=== PATIENT | female | born 1965 | race Caucasian/White ===

== ENCOUNTER 2016-10-11 14:20 | Emergency (ER) | payer OTHER ==
[~2016-10-11] VITALS: Ht 165.1 cm; Wt 85.9 kg
[~2016-10-11 14:20] MED LIST: AUGMENTIN875 MG PO; CIPRO500 MG PO; CLEOCIN300 MG PO; CLINDAMYCIN HC150 MG PO; FLEXERIL10 MG PO; FLEXERIL5 MG PO; FLOMAX0.4 MG PO; Flexeril PO; HYDROCHLOROTHIA25 MG PO; Humibid LA,Mucinex PO; K-DUR20 MEQ PO; KEFLEX500 MG PO; LEVO-T75 MCG PO; LEVOTHYROXINE150 MCG PO; LEVOTHYROXINE75 MCG PO; LOPRESSOR25 MG PO; LORTAB 5-325 M1 EACH PO; Levaquin PO; Levothroid,Synthroid PO; Lopressor PO; MEDROL DOSEPAK4 MG PO; METOPROLOL PO; METOPROLOL SUCC25 MG PO; METOPROLOL SUCC50 MG PO; METOPROLOL TART25 MG PO; MOTRIN600 MG PO; MOTRIN800 MG PO; NAPROSYN500 MG PO; NO MEDS; NOHOMEMEDS; NORCO 5/3251 TABLET PO; Norvasc PO; OXAYDO5 MG PO; OXYCODONE HCL5 MG PO; PATADAY2.5 ML BOTH EYES; PERCOCET 5/31 TABLET PO; PHENERGAN25 MG PR; PREDNISONE10 MG PO; PREDNISONE20 MG PO; PROMETHAZINE HC25 M1 PO; SKELAXIN800 MG PO; TRAMADOL HCL50 MG PO; TYLENOL WITH C1 EACH PO; ULTRACET1 TABLET PO; VALIUM5 MG PO; VICODIN 5-3001 EACH PO; Vicodin ES 7.5/750 PO; ZOFRAN8 MG PO; oxyCODONE PO
[2016-10-11] MEDS ORDERED: VENTOLIN HFA18 GM IH (16:21)
[2016-10-11] MEDS ORDERED: ZITHROMAX250 MG PO (16:21)
[2016-10-11] MEDS ORDERED: FLONASE16 G1 BOTH NARES (16:21)
[2016-10-11] MEDS ORDERED: PREDNISONE20 MG PO (16:21)
[2016-10-11] MEDS ORDERED: LEVO-T75 MCG PO (16:21)
[2016-10-11] MEDS ORDERED: METOPROLOL TART25 MG PO (16:21)
[2016-10-11 16:56] VITALS: BP 171/84
== END 2016-10-11 16:59 | disposition home or self-care (01) ==
LOC: EME 14:20
DX: J32.9 Chronic sinusitis, unspecified (principal); J20.9 Acute bronchitis, unspecified; Z76.0 Encounter for issue of repeat prescription; I10 Essential (primary) hypertension; Z87.442 Personal history of urinary calculi; F17.200 Nicotine dependence, unspecified, uncomplicated
CPT/HCPCS: 94640; 99281; 99283; J7512

== ENCOUNTER 2016-10-31 18:33 | Emergency (ER) | payer OTHER ==
[~2016-10-31] VITALS: Ht 167.6 cm; Wt 81.8 kg
[~2016-10-31 18:33] MED LIST changes: +FLONASE16 G1 BOTH NARES; +VENTOLIN HFA18 GM IH; +ZITHROMAX250 MG PO
[2016-10-31 19:36] LABS: ADD MIUA? NO; BILIRUBIN NEGATIVE; BLOOD NEGATIVE; COLOR YELLOW ((YELLOW)); GLUCOSE (STRIP) NEGATIVE; KETONES NEGATIVE; LEUKOCYTES NEGATIVE; NITRITE NEGATIVE; PROTEIN (STRIP) NEGATIVE; UCUL ADDED? NO; UROBILINOGEN 0.2 MG/DL (0.2-1.0)
[2016-10-31 19:59] LABS: MCH 31.2 PG (29.0-34.0); MCHC 31.7 G/DL (30.0-36.0); MCV 98.3 FL (83-99); MEAN PLAT.VOLUME 10.1 uM^3 (9.5-12.4); PLATELET COUNT 210 K/uL (156-360); RBC DIS.WIDTH-CV 14.3 % (11.8-14.6); RBC DIS.WIDTH-SD 51.9 % (39-53); RED BLOOD COUNT 3.56 M/uL (3.80-5.20)
[2016-10-31 20:09] LABS: CHLORIDE 109 mEq/L (99-109); POTASSIUM 3.5 mEq/L (3.7-5.4); SODIUM 142 mEq/L (136-147)
[2016-10-31 20:11] LABS: GLUCOSE 101 mg/dL (70-99)
[2016-10-31 20:12] LABS: ANION GAP 10 MEQ/L (2-14)
[2016-10-31 20:13] LABS: TOTAL BILIRUBIN 0.4 mg/dL (0.0-1.0)
[2016-10-31 20:14] LABS: ALKALINE PHOSPHATASE 49 IU/L (3-129)
[2016-10-31 20:15] LABS: GFR ESTIMATE (CALCULATED) 56 mL/min/
[2016-10-31 20:16] LABS: UREA NITROGEN (BUN) 19 mg/dL (9-23)
[2016-10-31 20:18] LABS: LIPASE 28 U/L (1.0-51.0)
[2016-10-31] MEDS ORDERED: ZOFRAN ODT4 MG PO (21:47)
[2016-10-31] MEDS ORDERED: PERCOCET 5/31 TABLET PO (21:47)
[2016-11-01 00:20] VITALS: BP 175/106
== END 2016-11-01 00:28 | disposition home or self-care (01) ==
LOC: EME 18:33
PROVIDERS: Physician Assistant
DX: R10.9 Unspecified abdominal pain (principal); I10 Essential (primary) hypertension; R11.10 Vomiting, unspecified; Z87.442 Personal history of urinary calculi; F17.200 Nicotine dependence, unspecified, uncomplicated
CPT/HCPCS: 74176; 80053; 81003; 83690; 85027; 99281; 99285; J0360; J2270; J2405; J7030

== ENCOUNTER 2016-11-05 08:07 | Emergency (ER) | payer OTHER ==
[~2016-11-05] VITALS: Ht 165.1 cm; Wt 87.0 kg
[~2016-11-05 08:07] MED LIST changes: +ZOFRAN ODT4 MG PO
[2016-11-05 09:14] LABS: BASOPHIL COUNT 0.1 K/uL (0-0.1); EOSINOPHIL (%) 5.1 % (0-5); EOSINOPHIL COUNT 0.3 K/uL (0-0.3); HEMATOCRIT 38.9 % (36.0-46.0); IMMATURE GRANULOCYTE (%) 0.6 % (0.0-0.7); INSTRUMENT ABS NEUTROPHIL CT 3.2 K/uL; LYMPHOCYTE COUNT 1.5 K/uL (1.0-2.8); MCH 31.1 PG (29.0-34.0); MCHC 31.6 G/DL (30.0-36.0); MCV 98.2 FL (83-99); MEAN PLAT.VOLUME 10.3 uM^3 (9.5-12.4); MONOCYTE (%) 6.4 % (3-12); MONOCYTE COUNT 0.3 K/uL (0-0.8); NEUTROPHIL (%) 59.1 % (45-76); NEUTROPHIL COUNT 3.2 K/uL (1.8-6.4); PLATELET COUNT 237 K/uL (156-360); RBC DIS.WIDTH-CV 13.8 % (11.8-14.6); RBC DIS.WIDTH-SD 50.4 % (39-53); RED BLOOD COUNT 3.96 M/uL (3.80-5.20); WHITE BLOOD COUNT 5.3 K/uL (4.1-10.2)
[2016-11-05 09:24] LABS: CHLORIDE 106 mEq/L (99-109); POTASSIUM 3.9 mEq/L (3.7-5.4); SODIUM 142 mEq/L (136-147)
[2016-11-05 09:26] LABS: GLUCOSE 97 mg/dL (70-99)
[2016-11-05 09:27] LABS: ANION GAP 12 MEQ/L (2-14)
[2016-11-05 09:30] LABS: GFR ESTIMATE (CALCULATED) > 59 mL/min/
[2016-11-05 09:31] LABS: UREA NITROGEN (BUN) 17 mg/dL (9-23)
[2016-11-05 09:40] LABS: ADD MIUA? NO; BILIRUBIN NEGATIVE; BLOOD NEGATIVE; COLOR STRAW ((YELLOW)); GLUCOSE (STRIP) NEGATIVE; KETONES NEGATIVE; LEUKOCYTES NEGATIVE; NITRITE NEGATIVE; PROTEIN (STRIP) NEGATIVE; SPECIFIC GRAVITY 1.009 (1.000-1.030); UCUL ADDED? NO; UROBILINOGEN 0.2 MG/DL (0.2-1.0)
[2016-11-05] MEDS ORDERED: ULTRAM50 MG PO (12:01)
[2016-11-05] MEDS ORDERED: MOTRIN400 MG PO (12:05)
[2016-11-05 12:28] VITALS: BP 166/84
== END 2016-11-05 12:40 | disposition home or self-care (01) ==
LOC: EME 08:07
PROVIDERS: Emergency Medicine
DX: M16.12 Unilateral primary osteoarthritis, left hip (principal); M25.552 Pain in left hip; I10 Essential (primary) hypertension; E03.9 Hypothyroidism, unspecified; Z90.710 Acquired absence of both cervix and uterus; Z87.442 Personal history of urinary calculi; F17.200 Nicotine dependence, unspecified, uncomplicated
CPT/HCPCS: 80048; 81003; 85025; 99281; 99285; J1885; J2405; J7030

== ENCOUNTER 2016-11-14 14:06 | Emergency (ER) | payer OTHER ==
[~2016-11-14] VITALS: Ht 165.1 cm; Wt 87.1 kg
[~2016-11-14 14:06] MED LIST changes: +MOTRIN400 MG PO; +ULTRAM50 MG PO
[2016-11-14] MEDS ORDERED: PERCOCET 5/31 TABLET PO (15:52)
[2016-11-14 16:09] VITALS: BP 168/112
== END 2016-11-14 16:23 | disposition home or self-care (01) ==
LOC: EME 14:06
DX: M16.12 Unilateral primary osteoarthritis, left hip (principal); I10 Essential (primary) hypertension; E03.9 Hypothyroidism, unspecified
CPT/HCPCS: 99281; 99284

== ENCOUNTER 2016-12-10 13:41 | Emergency (ER) | payer OTHER ==
[~2016-12-10] VITALS: Ht 165.1 cm; Wt 84.0 kg
[2016-12-10 14:59] LABS: HEMATOCRIT 38.7 % (36.0-46.0); MCH 30.6 PG (29.0-34.0); MCHC 31.5 G/DL (30.0-36.0); MEAN PLAT.VOLUME 9.4 uM^3 (9.5-12.4); PLATELET COUNT 182 K/uL (156-360); RBC DIS.WIDTH-CV 12.8 % (11.8-14.6); RBC DIS.WIDTH-SD 45.8 % (39-53); RED BLOOD COUNT 3.99 M/uL (3.80-5.20)
[2016-12-10 15:12] LABS: CHLORIDE 107 mEq/L (99-109); SODIUM 141 mEq/L (136-147)
[2016-12-10 15:14] LABS: GLUCOSE 83 mg/dL (70-99)
[2016-12-10 15:15] LABS: ANION GAP 6 MEQ/L (2-14); ERTH.SED.RATE 8 MM/HR (0-20)
[2016-12-10 15:18] LABS: GFR ESTIMATE (CALCULATED) > 59 mL/min/; UREA NITROGEN (BUN) 21 mg/dL (9-23)
[2016-12-10 15:20] LABS: CREATINE KINASE 169 IU/L (1-294)
[2016-12-10] MEDS ORDERED: VALIUM5 MG PO (15:59)
[2016-12-10] MEDS ORDERED: FIORICET 50-301 EACH PO (15:59)
[2016-12-10] MEDS ORDERED: MOTRIN800 MG PO (15:59)
[2016-12-10 16:25] VITALS: BP 160/99
== END 2016-12-10 16:26 | disposition home or self-care (01) ==
LOC: EME 13:41
PROVIDERS: Physician Assistant
DX: G44.209 Tension-type headache, unspecified, not intractable (principal); M50.321 Other cervical disc degeneration at C4-C5 level; M54.12 Radiculopathy, cervical region; M62.838 Other muscle spasm; M79.602 Pain in left arm; Z87.891 Personal history of nicotine dependence
CPT/HCPCS: 70450; 72040; 80048; 82550; 85027; 85651; 99281; 99284; J3010

== ENCOUNTER 2016-12-21 11:25 | Emergency (ER) | payer OTHER ==
[~2016-12-21] VITALS: Ht 165.1 cm; Wt 83.7 kg
[~2016-12-21 11:25] MED LIST changes: +FIORICET 50-301 EACH PO
[2016-12-21 13:59] LABS: COLOR RED ((YELLOW)); LEUKOCYTES MODERATE; NITRITE NEGATIVE; SPECIFIC GRAVITY 1.015 (1.000-1.030)
[2016-12-21 14:00] LABS: ADD MIUA? YES; BILIRUBIN NEGATIVE; BLOOD LARGE; GLUCOSE (STRIP) NEGATIVE; KETONES NEGATIVE; PH, URINE 6.5 (5-8); PROTEIN (STRIP) >300; UROBILINOGEN 0.2 MG/DL (0.2-1.0)
[2016-12-21 14:07] LABS: BACTERIA 1+ /HPF; BUDDING YEAST 1+; EPITHELIAL CELLS 2+ /HPF; MUCUS 2+ /LPF; RED BLOOD CELLS TNTC /HPF (0-5); UCUL ADDED? YES; WHITE BLOOD CELLS TNTC /HPF (0-5); WHITE BLOOD CELLS CLUMP MOD /HPF (0-5)
[2016-12-21 14:35] LABS: HEMATOCRIT 40.2 % (36.0-46.0); MCH 30.9 PG (29.0-34.0); MCHC 32.1 G/DL (30.0-36.0); MCV 96.2 FL (83-99); MEAN PLAT.VOLUME 9.7 uM^3 (9.5-12.4); PLATELET COUNT 197 K/uL (156-360); RBC DIS.WIDTH-CV 12.6 % (11.8-14.6); RED BLOOD COUNT 4.18 M/uL (3.80-5.20); WHITE BLOOD COUNT 8.1 K/uL (4.1-10.2)
[2016-12-21 14:39] LABS: CHLORIDE 105 mEq/L (99-109); POTASSIUM 3.4 mEq/L (3.7-5.4); SODIUM 141 mEq/L (136-147)
[2016-12-21 14:41] LABS: GLUCOSE 95 mg/dL (70-99)
[2016-12-21 14:43] LABS: ANION GAP 11 MEQ/L (2-14); TOTAL BILIRUBIN 0.4 mg/dL (0.0-1.0)
[2016-12-21 14:45] LABS: ALKALINE PHOSPHATASE 116 IU/L (3-129); GFR ESTIMATE (CALCULATED) > 59 mL/min/
[2016-12-21 14:46] LABS: UREA NITROGEN (BUN) 15 mg/dL (9-23)
[2016-12-21 14:55] LABS: QUANTITATIVE HCG < 4.0 MIU/ML
[2016-12-21] MEDS ORDERED: FLOMAX0.4 MG PO (15:38)
[2016-12-21] MEDS ORDERED: CIPRO500 MG PO (15:38)
[2016-12-21] MEDS ORDERED: NORCO 5/3251 TABLET PO (15:39)
[2016-12-21 15:59] VITALS: BP 160/77
== END 2016-12-21 16:00 | disposition home or self-care (01) ==
LOC: RME 11:25 → EME 11:25 → RME 16:00
PROVIDERS: Physician Assistant
DX: N12 Tubulo-interstitial nephritis, not specified as acute or chronic (principal); N20.1 Calculus of ureter; S32.9XXA Fracture of unspecified parts of lumbosacral spine and pelvis, initial encounter for closed fracture; I10 Essential (primary) hypertension; Z87.442 Personal history of urinary calculi; Z87.891 Personal history of nicotine dependence
CPT/HCPCS: 74176; 80053; 81003; 83605; 84702; 85027; 87040; 87077; 87086; 87186; 87801; 99281; 99285; J0696

== ENCOUNTER 2016-12-23 15:23 | Inpatient (IN) | payer OTHER ==
[~2016-12-23] VITALS: Ht 165.1 cm; Wt 80.3 kg
[2016-12-23 16:11] LABS: BASOPHIL COUNT 0.1 K/uL (0-0.1); EOSINOPHIL COUNT 0.1 K/uL (0-0.3); HEMATOCRIT 38.9 % (36.0-46.0); IMMATURE GRANULOCYTE (%) 0.7 % (0.0-0.7); IMMATURE GRANULOCYTE COUNT 0.1 K/uL; INSTRUMENT ABS NEUTROPHIL CT 4.6 K/uL; LYMPHOCYTE COUNT 1.6 K/uL (1.0-2.8); MCH 30.6 PG (29.0-34.0); MCHC 32.1 G/DL (30.0-36.0); MCV 95.3 FL (83-99); MEAN PLAT.VOLUME 9.6 uM^3 (9.5-12.4); MONOCYTE (%) 8.1 % (3-12); MONOCYTE COUNT 0.6 K/uL (0-0.8); NEUTROPHIL (%) 65.7 % (45-76); NEUTROPHIL COUNT 4.6 K/uL (1.8-6.4); PLATELET COUNT 242 K/uL (156-360); RBC DIS.WIDTH-CV 12.3 % (11.8-14.6); RBC DIS.WIDTH-SD 43.4 % (39-53); RED BLOOD COUNT 4.08 M/uL (3.80-5.20)
[2016-12-23 16:21] LABS: CHLORIDE 106 mEq/L (99-109); POTASSIUM 3.6 mEq/L (3.7-5.4); SODIUM 140 mEq/L (136-147)
[2016-12-23 16:22] LABS: GLUCOSE 116 mg/dL (70-99)
[2016-12-23 16:24] LABS: ANION GAP 9 MEQ/L (2-14)
[2016-12-23 16:26] LABS: GFR ESTIMATE (CALCULATED) > 59 mL/min/
[2016-12-23 16:27] LABS: UREA NITROGEN (BUN) 15 mg/dL (9-23)
[2016-12-23] MEDS ORDERED: FLONASE16 G1 BOTH NARES (18:20)
[2016-12-23] MEDS ORDERED: TRAMADOL HCL50 MG PO (18:21)
[2016-12-23] MEDS ORDERED: FLEXERIL10 MG PO (18:21)
[2016-12-23] MEDS ORDERED: LOSARTAN POTASS50 MG PO (18:22)
[2016-12-23] MEDS ORDERED: GABAPENTIN100 MG PO (18:22)
[2016-12-23 23:10] VITALS: BP 132/89
[2016-12-24 04:00] VITALS: BP 140/82
[2016-12-24 07:01] LABS: HEMATOCRIT 33.6 % (36.0-46.0); MCH 31.6 PG (29.0-34.0); MCHC 32.4 G/DL (30.0-36.0); MCV 97.4 FL (83-99); MEAN PLAT.VOLUME 10.3 uM^3 (9.5-12.4); PLATELET COUNT 213 K/uL (156-360); RBC DIS.WIDTH-CV 12.4 % (11.8-14.6); RBC DIS.WIDTH-SD 44.3 % (39-53); RED BLOOD COUNT 3.45 M/uL (3.80-5.20); WHITE BLOOD COUNT 5.1 K/uL (4.1-10.2)
[2016-12-24 07:30] LABS: ALKALINE PHOSPHATASE 78 IU/L (3-129); ANION GAP 8 MEQ/L (2-14); CHLORIDE 109 MEQ/L (99-109); GFR ESTIMATE (CALCULATED) > 59 mL/min/; GLUCOSE 89 mg/dL (70-99); SAMPLE HEMOLYSIS CHECK 0; SAMPLE ICTERIC CHECK 0; SAMPLE LIPEMIA CHECK 0; SODIUM 143 MEQ/L (136-147); TOTAL BILIRUBIN 0.2 MG/DL (0.0-1.0); UREA NITROGEN (BUN) 20 mg/dL (9-23)
[2016-12-24 07:37] LABS: POTASSIUM 4.7 MEQ/L (3.7-5.4)
[2016-12-24 09:15] VITALS: BP 138/80
[2016-12-24 11:27] VITALS: BP 178/88
[2016-12-24 20:34] VITALS: BP 170/96
[2016-12-24 23:17] VITALS: BP 171/89
[2016-12-25 03:29] VITALS: BP 156/95
[2016-12-25 06:35] LABS: HEMATOCRIT 36.5 % (36.0-46.0); MCH 30.9 PG (29.0-34.0); MCHC 32.1 G/DL (30.0-36.0); MCV 96.3 FL (83-99); MEAN PLAT.VOLUME 9.9 uM^3 (9.5-12.4); PLATELET COUNT 231 K/uL (156-360); RBC DIS.WIDTH-CV 12.4 % (11.8-14.6); RED BLOOD COUNT 3.79 M/uL (3.80-5.20); WHITE BLOOD COUNT 5.2 K/uL (4.1-10.2)
[2016-12-25 07:07] LABS: ANION GAP 9 MEQ/L (2-14); CHLORIDE 106 MEQ/L (99-109); GFR ESTIMATE (CALCULATED) > 59 mL/min/; GLUCOSE 104 mg/dL (70-99); POTASSIUM 3.8 MEQ/L (3.7-5.4); SAMPLE HEMOLYSIS CHECK 0; SAMPLE ICTERIC CHECK 0; SAMPLE LIPEMIA CHECK 0; SODIUM 141 MEQ/L (136-147); UREA NITROGEN (BUN) 16 mg/dL (9-23)
[2016-12-25 09:31] VITALS: BP 160/100
[2016-12-25 16:24] VITALS: BP 140/93
[2016-12-25 20:33] VITALS: BP 193/105
[2016-12-25 23:40] VITALS: BP 155/78
[2016-12-26] VITALS (8 sets, daily range): BP systolic 141–183; BP diastolic 91–113
[2016-12-26 06:11] LABS: MCH 31.8 PG (29.0-34.0); MCHC 33.5 G/DL (30.0-36.0); MEAN PLAT.VOLUME 9.7 uM^3 (9.5-12.4); PLATELET COUNT 243 K/uL (156-360); RBC DIS.WIDTH-CV 12.3 % (11.8-14.6); RBC DIS.WIDTH-SD 43.4 % (39-53); RED BLOOD COUNT 3.58 M/uL (3.80-5.20); WHITE BLOOD COUNT 5.2 K/uL (4.1-10.2)
[2016-12-26] MEDS ORDERED: SYNTHROID125 MCG PO (12:50)
[2016-12-26] MEDS ORDERED: VITAMIN D31000 UNI2 PO (12:50)
[2016-12-26] MEDS ORDERED: CIPRO500 MG PO (12:50)
[2016-12-26] MEDS ORDERED: CALCIUM500 M4 PO (12:51)
[2016-12-26] MEDS ORDERED: METOPROLOL TART25 MG PO (15:17)
[2016-12-26] MEDS ORDERED: AMLODIPINE BESYL5 MG PO (15:17)
[2016-12-26] MEDS ORDERED: NORCO 5/3251 TABLET PO (15:17)
[2016-12-27 08:16] VITALS: BP 161/102
[2016-12-27] MEDS ORDERED: AMLODIPINE BESY10 MG PO (09:39)
== END 2016-12-27 13:30 | disposition home or self-care (01) | DRG 690 ==
LOC: EME 15:23 → EDOF 20:11 → 3EAST 20:46 → EDOF 20:46 → 3EAST 22:34
PROVIDERS: Internal Medicine; Physician Assistant
DX: N39.0 Urinary tract infection, site not specified (principal); N20.2 Calculus of kidney with calculus of ureter; N20.1 Calculus of ureter; S32.592A Other specified fracture of left pubis, initial encounter for closed fracture; M81.0 Age-related osteoporosis without current pathological fracture; B96.20 Unspecified Escherichia coli [E. coli] as the cause of diseases classified elsewhere; R31.9 Hematuria, unspecified; E03.9 Hypothyroidism, unspecified; I16.0 Hypertensive urgency; E55.9 Vitamin D deficiency, unspecified; I10 Essential (primary) hypertension; G89.29 Other chronic pain; M54.5 Low back pain; S32.512A Fracture of superior rim of left pubis, initial encounter for closed fracture; E87.6 Hypokalemia; R73.9 Hyperglycemia, unspecified; R31.0 Gross hematuria; J45.909 Unspecified asthma, uncomplicated; Z16.11 Resistance to penicillins; S82.899G Other fracture of unspecified lower leg, subsequent encounter for closed fracture with delayed healing; Z87.442 Personal history of urinary calculi; Z87.891 Personal history of nicotine dependence
CPT/HCPCS: 80048; 80053; 82306; 82310; 83605; 84439; 84443; 85025; 85027; 87040; 99202; 99281; 99285; J0360; J0696; J2270; J7030; J7040; J7050